=== PATIENT | female | born 1975 | race Caucasian/White ===

== ENCOUNTER 2016-10-16 06:35 | Inpatient (IN) | payer BC ==
--- NOTE | ~2016-10-16 | CO ---
Unit #: [id number] #: [id number] Patient: COREY REYES [id number] [place] [address] [id number] I MR#: [id number] NAME: COREY REYES ROOM: P209 Age: 41 Sex: F Admission Date: 10/16/2016 : 1975 Attending Physician: Deon Arthur M.D. Consultation Date: 10/16/2016 CONSULTATION REPORT SUBJECTIVE Sandhya is a 41-year-old who injured her finger 6 weeks ago. This area was examined and described in her admission H and P. Please see H and P dated 10/16/2016. Dictated by... Merced MosquedaAOrlin for Shawn Hays/liam TD: 10/16/2016 22:25 JOB #: [id number] CONSULTATION REPORT X Cara Rojas X CONSULTATION REPORT
--- NOTE | ~2016-10-16 | HP ---
Unit #: [id number] #: [id number] Patient: SAFIA REYES [id number] [place] [address] [id number] MR#: [id number] NAME: SAFIA REYES ROOM: P209 Age: 41 Sex: F Admission Date: 10/16/2016 : 1975 Attending Physician: Deon Arthur M.D. Admitting Physician: Deon Arthur M.D. Primary Care Physician: Primary Care Physician No HISTORY AND PHYSICAL HISTORY OF PRESENT ILLNESS Safia is a 41 year old admitted to [address] [place] [address] because of her polysubstance abuse which includes methamphetamine. PAST MEDICAL HISTORY 1. Long history of polysubstance abuse to include methamphetamine, benzodiazepines and opioids. 2. Degenerative disc disease. 3. Chiari malformation . PAST SURGICAL HISTORY Hysterectomy. ALLERGIES Morphine (itching) SOCIAL HISTORY She denies cigarettes and alcohol. Admits to using methamphetamine on occasion. She also reports that she is prescribed benzodiazepines and opioids. FAMILY HISTORY Medically noncontributory. REVIEW OF SYSTEMS CONSTITUTIONAL: No fever or chills. HEENT: Denies any sore throat, ear pain or runny nose. CARDIOVASCULAR: Denies chest pain, irregular heart rhythm or palpitations. CHEST: Denies shortness of breath or cough. No hemoptysis. GASTROINTESTINAL: Denies nausea, vomiting, diarrhea or chronic constipation. ENDOCRINE: Denies history of increased thirst or urination. No recent significant weight loss or gain. GENITOURINARY: Denies dysuria, frequency, or hematuria. SKIN: Denies any rashes. HEMATOLOGIC: Denies history of increased bleeding or bruising. MUSCULOSKELETAL: Denies any hot, swollen joints. No generalized muscle pain. EXTREMITIES: She reports an injury to her right index finger six weeks ago. She crushed the joint in a tile cutter. She was x-rayed did show a fracture by her report. She has had it in a splint for six weeks. She Unit #: [id number] #: [id number] Patient: SAFIA REYES has never followed up with primary care or orthopaedics. NEUROLOGIC: Denies problems with vision or speech. No frequent, severe headaches. No numbness, tingling or weakness in any extremities. Denies loss of bladder or bowel control. CURRENT MEDICATIONS 1. Desyrel 100 mg q.h.s. p.r.n. 2. Milk of Magnesia p.r.n. 3. Maalox p.r.n. 4. Tylenol p.r.n. PHYSICAL EXAMINATION GENERAL: Alert, well-nourished, in no apparent distress. VITAL SIGNS: Blood pressure 116/78, heart rate 94, respirations 16, temperature 98.6. WEIGHT: 162 pounds. HEIGHT: 5'5". SKIN: Warm and dry without rash or lesion. HEENT: Normocephalic. TMs not viewed. Oral and nasal passages clear. Conjunctivae clear. Pupils equal, round and reactive to light and accommodation. Extraocular movements intact. NECK: Supple without lymphadenopathy or thyromegaly. HEART: Regular rate and rhythm without murmur. LUNGS: Clear. ABDOMEN: Soft, nontender. : Not done. EXTREMITIES: Right index finger is in an aluminum immobilizer. She has no range of motion in the PIP joint. Skin is intact. NEUROLOGICAL: Grossly within normal limits. Cranial Nerves: II: Visual hawthorne are intact. III, IV AND : Extraocular movements are intact. Pupils are equal, round and reactive to light. V: Facial sensation is grossly normal. VII: Facial movements and expression are normal. VIII: Auditory acuity grossly intact. IX, X: Uvula is midline. Phonation is normal. XI: Patient shrugs shoulders and turns head normally. XII: Tongue protrudes in the midline. Sensory and Motor Function: Sensory and motor sensation is grossly normal. Motor: moves all extremities well. Coordination: Gait is normal. Deep Tendon Reflexes: Intact. IMPRESSION 1. Psychiatric admission. 2. History of illicit substance abuse to include methamphetamine. 3. Chiari malformation. 4. Degenerative disc disease. 5. Six week old injury to her finger. RECOMMENDATIONS PSYCHIATRIC: Per psychiatrist. MEDICAL: 1. I see no contraindications to participating in facility's activities. 2. The patient can followup with her PCP or orthopaedics upon discharge for definitive treatment of the injured finger. MEDICAL PROGNOSIS Good. Unit #: [id number] #: [id number] Patient: SAFIA REYES MEDICAL CONDITION Stable. Dictated by... Cara Rojas P.A.-C. for Shawn Hays/henok TD: 10/17/2016 00:00 JOB #: [id number] HISTORY AND PHYSICAL X Cara Rojas X HISTORY AND PHYSICAL
--- NOTE | ~2016-10-16 | PN ---
Unit #: [id number] #: [id number] Patient: COREY ULLOA [id number] [facility] [address] [place] [address] [id number] MR#: [id number] NAME: COREY ULLOA ROOM: P209 Age: 41 Sex: F Admission Date: 10/16/2016 : 1975 Attending Physician: Deon Arthur M.D. Admitting Physician: Deon Arthur M.D. Primary Care Physician: Primary Care Physician Maria Esther [facility] NOTES DATE 10/17/2016 DISCUSSION Ms. Ulloa is a 41-year-old white female who was seen today and chart was reviewed and case was discussed with the staff. She has been anxious, withdrawn and rather seclusive to herself. Meanwhile, she has been complaining of persistent depression and anxiety and has been seclusive to herself. She has been taking medications and tolerating them fairly well with no reported side effects. MENTAL STATUS EXAMINATION Middle-aged white female who was casually dressed with fair personal hygiene, appears to be in no acute distress or discomfort. She was awake and alert on interaction with intact orientation. Her mood was anxious with congruent affect. Her speech was slow and goal-directed. She denies any suicidal or homicidal ideations. Her insight and judgement remains slightly impaired. TREATMENT PLAN 1. We will continue her on her current medications and treatment protocol. We will monitor her response to the medication and make further adjustments as needed. 2. We will continue to follow up. Dictated by... Shawn Perez/henok TD: 10/18/2016 22:40 JOB #: [id number] Unit #: [id number] #: [id number] Patient: COREY ULLOA PEALAUREEN PROGRESS NOTES X Deon Arthur MD PROGRESS NOTE
--- NOTE | ~2016-10-16 | DS ---
Unit #: [id number] #: [id number] [facility] [id number] [facility] [address] [place] [address] [id number] I MR#: [id number] NAME: COREY ULLOA ROOM: P209 Age: 41 Sex: F Admission Date: 10/16/2016 : 1975 Discharge Date: 10/20/2016 Attending Physician: Deon Arthur M.D. DISCHARGE SUMMARY IDENTIFYING DATA Ms. Ulloa is a 41-year-old single white female, who is a resident of [place], [place], and was brought to the hospital by her ex-. DISCHARGE DIAGNOSES Psychiatric: Major depressive disorder, recurrent, moderate, without psychotic features and methamphetamine dependence, moderate. Medical: Arnold-Chiari malformation syndrome and chronic renal disease. Stressors: Moderate psychosocial stressors. HISTORY OF PRESENT ILLNESS Please see initial psychiatric evaluation for details. PAST PSYCHIATRIC HISTORY Please see initial psychiatric evaluation for details. PAST MEDICAL HISTORY Please see initial psychiatric evaluation for details. HOSPITAL COURSE The patient [facility] and was oriented to the hospital environment. Routine p.r.n. medications were initiated, and she was started back on her home medications and Lexapro as an antidepressant was also started. She was taking the medications regularly and was tolerating them fairly well and was able to show a decent and therapeutic response with improvement in depression and anxiety and was willing to continue treatment on an outpatient basis and as such, it was decided that she will be discharged home and will continue treatment on an outpatient basis. DISCHARGE MEDICATION Lexapro 10 mg a day for depression. DISCHARGE CONDITION Stable. PROGNOSIS Fair. Dictated by... Deon Arthur M.D. Unit #: [id number] #: [id number] Patient: COREY ULLOA IAA/modl TD: 10/20/2016 13:33 JOB #: [id number] DISCHARGE SUMMARY X Deon Arthur MD X DISCHARGE SUMMARY
--- NOTE | ~2016-10-16 | PN ---
Unit #: [id number] #: [id number] Patient: COREY REYES [id number] [facility] [address] [place] [address] [id number] I MR#: [id number] NAME: COREY REYES ROOM: P209 Age: 41 Sex: F Admission Date: 10/16/2016 : 1975 Attending Physician: Deon Arthur M.D. Admitting Physician: Deon Arthur M.D. Primary Care Physician: Primary Care Physician Maria Esther SPENCER PROGRESS NOTES DATE 10/18/2016 DISCUSSION Ms. Reyes is a 41-year-old white female who was seen today and chart was reviewed and case was discussed with the staff. She has been anxious, withdrawn though has not shown any agitation, irritability or behavioral problems and has been cooperative with treatment recommendations as she has been taking medications and tolerating them fairly well with no reported side effects. MENTAL STATUS EXAMINATION Young white female who was casually dressed with fair personal hygiene and appears to be in no acute distress or discomfort. She was awake and alert on interactions with intact orientation. Her mood was anxious with congruent affect. She denies any suicidal or homicidal ideation. Her insight and judgement remains slightly impaired. TREATMENT PLAN 1. Will continue on current medications and treatment protocol. Will monitor her response and make further adjustments as needed. 2. Will continue to follow up. Dictated by... Deon Arthur M.D. IAA/edgar TD: 10/19/2016 17:16 JOB #: [id number] Unit #: [id number] #: [id number] Patient: COREY REYES [facility] PROGRESS NOTES X Deon Arthur MD X PROGRESS NOTE
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
--- NOTE | ~2016-10-16 | PN ---
Unit #: [id number] #: [id number] Patient: COREY ULLOA [id number] [facility] [address] [place] [address] [id number] I MR#: [id number] NAME: COREY ULLOA ROOM: P209 Age: 41 Sex: F Admission Date: 10/16/2016 : 1975 Attending Physician: Deon Arthur M.D. Admitting Physician: Deon Arthur M.D. Primary Care Physician: Primary Care Physician Maria Esther [place] NOTES DATE OF SERVICE: 10/19/2016 SUBJECTIVE Ms. Ulloa is a 41-year-old white female, who was seen today and chart was reviewed and the case was discussed with the staff. She has been anxious and withdrawn, though has not shown any agitation or irritability and has been cooperative with the treatment recommendations as she has been taking the medications and tolerating them fairly well. MENTAL STATUS EXAMINATION Middle-aged white female, who was casually dressed with fair personal hygiene, appears to be in no acute distress or discomfort. She was awake and alert on interaction with intact orientation. Her mood was anxious with a congruent affect. She denies any suicidal or homicidal ideations. Her insight and judgment remain slightly impaired. TREATMENT PLAN 1. We will continue her on her current treatment protocol. We will monitor her response to medications and make further adjustments as needed. 2. We will continue to follow up. Dictated by... Shawn Perez/liam TD: 10/19/2016 16:03 JOB #: [id number] JOHANNA PROGRESS NOTES X Deon Arthur MD PROGRESS NOTE
[2016-10-17 09:37] LABS: URINE APPEARANCE CLOUDY; URINE BILIRUBIN NEG (NEG); URINE BLOOD NEG (NEG); URINE COLOR YELLOW; URINE GLUCOSE NEG (NEG); URINE KETONE NEG (NEG); URINE LEUKOCYTE ESTERASE NEG (NEG); URINE NITRATE NEG (NEG); URINE PROTEIN NEG (NEG); URINE SPECIFIC GRAVITY 1.017 (1.003-1.035); URINE UROBILINOGEN 0.2 MG/DL (NEG)
[2016-10-17 09:42] LABS: BASOPHIL# 0.1 X10e3 (0-0.3); BASOPHIL% 0.8 % (0-2.5); EOSINOPHIL# 0.4 X10e3 (0-0.7); EOSINOPHIL% 4.3 % (0.0-7.0); HEMOGLOBIN 12.9 gm/dL (12.0-16.0); LYMPHOCYTE# 1.6 X10e3 (1.0-3.5); LYMPHOCYTE% 17.5 % (17.0-45.0); MEAN CELL VOLUME 91.6 FL (83-96); MEAN CORPUSCULAR HEMOGLOBIN 30.3 PG (28-34); MEAN CORPUSCULAR HGB CONC 33.1 g/dL (30-36); MONOCYTE# 0.5 X10e3 (0-1.0); NEUTROPHIL# 6.6 X10e3 (1.5-7.1); NEUTROPHIL% 72.4 % (40-75); PLATELET COUNT 217 X10e3 (140-420); RED BLOOD COUNT 4.26 X10e (3.90-5.30); RED CELL DISTRIBUTION WIDTH 13.6 % (11.0-15.5); WHITE BLOOD COUNT 9.1 X10e3 (4.0-10.5)
[2016-10-17 09:55] LABS: DIFF IND NO
[2016-10-17 10:02] LABS: THYROID STIMULATING HORMONE 0.25 uIU/ml (0.34-5.60)
[2016-10-17 10:09] LABS: FREE THYROXIN (T4) 0.77 ng/dL (0.58-1.64)
[2016-10-17 10:31] LABS: ALBUMIN SERUM 3.7 g/dL (3.5-5.0); ALKALINE PHOSPHATASE 63 U/L (32-92); ALT (SGPT) 19 U/L (10-40); AST (SGOT) 25 U/L (10-42); BILIRUBIN,TOTAL 0.5 mg/dL (0.2-2.0); BLOOD UREA NITROGEN 11 mg/dL (9-23); BUN/CREATININE RATIO 13.75; CALCIUM SERUM 9.3 mg/dL (8.4-10.2); CARBON DIOXIDE 25 mmol/L (22-31); CHLORIDE 104 mmol/L (100-111); CREATININE SERUM 0.8 mg/dL (0.6-1.4); GLOM FILT RATE Estimated ABOVE60 mL/min (>60); GLUCOSE FASTING 152 mg/dL (70-110); POTASSIUM 3.9 mmol/L (3.5-5.1); PROTEIN TOTAL SERUM 6.3 g/dL (6.0-8.3); SODIUM 140 mmol/L (135-145)
[2016-10-17 10:47] LABS: AMPHETAMINE POS (NEG); BARBITURATES NEG (NEG); BENZODIAZEPINES POS (NEG); COCAINE NEG (NEG); MARIJUANA NEG (NEG); OPIATES POS (NEG); TRICYCLIC ANTIDEPRESSANTS NEG (NEG); U METHADONE NEG (NEG)
== END 2016-10-20 10:30 | disposition home or self-care (01) | DRG 885 ==
LOC: P2S 06:35
PROVIDERS: Psychiatry & Neurology Psychiatry
DX: F33.1 Major depressive disorder, recurrent, moderate (principal); F15.20 Other stimulant dependence, uncomplicated; N18.9 Chronic kidney disease, unspecified; Q07.00 Arnold-Chiari syndrome without spina bifida or hydrocephalus
CPT/HCPCS: 80053; 80307; 81003; 84439; 84443; 85025